=== PATIENT | male | born 1970 | race Hispanic/Latino ===

== ENCOUNTER 2016-07-17 06:40 | Emergency (ER) | payer SELFPAY ==
[2016-07-17] MEDS ORDERED: ONDANSETRON 4 MG/2 ML VIAL IVP ONE (06:58)
[2016-07-17] MEDS ORDERED: NORMAL SALINE 10 ML SYRINGE FLUSH IVP PRN (06:58)
[2016-07-17] MEDS ORDERED: HYDROmorphone 2 MG/1 ML IVP ONE (06:58)
[2016-07-17] MEDS ORDERED: Sodium Chloride 0.9% 1,000 ML PRIMARY IV ONE (06:58)
[2016-07-17] MEDS ORDERED: Famotidine Inj 20 MG in Normal Saline Flush 10 ML IVP ONE (06:58)
[2016-07-17 07:07] LABS: BASOPHILS # (AUTO) 0.02 10*3/UL; BASOPHILS % (AUTO) 0.1 % (0-1); EOSINOPHILS % (AUTO) 0.1 % (0-8); HEMATOCRIT 49.1 % (42.0-52.0); HEMOGLOBIN 16.2 g/dL (14.0-18.0); IMM GRAN % (AUTO) 0.5 % (0-5); IMM GRAN# (AUTO) 0.07 10*3/UL; LYMPHOCYTES # (AUTO) 1.75 10*3/uL; LYMPHOCYTES % (AUTO) 12.6 % (10-50); MEAN CORPUSCULAR HEMOGLOBIN 28.9 PG (27-31); MEAN PLATELET VOLUME 9.3 FL (7.4-12.2); MONOCYTES # (AUTO) 0.86 10*3/UL (0.3-0.8); MONOCYTES % (AUTO) 6.2 % (5-15); NEUTROPHILS # (AUTO) 11.21 10*3/UL; NEUTROPHILS % (AUTO) 80.5 % (50-80); PLATELET MORPHOLOGY COMMENT NORMAL MORPHOLOGY (NORM); WHITE BLOOD COUNT 13.92 10^3/uL (4.8-10.8)
[2016-07-17 07:08] VITALS: RESP 20; TEMP 97.8
[2016-07-17 07:16] LABS: AMYLASE 56 U/L (30-110); ASPARTATE AMINO TRANSFERASE 29 IU/L (21-57); BILIRUBIN,TOTAL 0.6 mg/dL (0.3-1.2); BLOOD UREA NITROGEN 17 mg/dL (7-22); BUN/CREATININE RATIO 21.25 (6-20); CALCIUM 9.2 mg/dL (8.7-10.7); CHLORIDE 101 meq/L (98-112); CREATININE 0.8 mg/dL (0.70-1.50); EST GLOMERULAR FILTRATION > 60 (>60 ml/min/1.73m(2)); GLUCOSE 159 mg/dL (78-110); POTASSIUM 3.7 meq/L (3.8-5.2); SODIUM 139 meq/L (135-145); TOTAL PROTEIN 7.3 g/dL (6.1-8.0)
[2016-07-17 07:48] LABS: BILIRUBIN,URINE NEGATIVE (NEG); CLARITY,URINE Slightly Clo (CLEAR); GLUCOSE, URINE (UA) NEGATIVE (NEG); LEUKOCYTE ESTERASE ,URINE NEGATIVE (NEG); NITRATE,URINE NEGATIVE (NEG); PH,URINE >=9.0 (5.0-8.5); PROTEIN,URINE TRACE mg/dl (NEG); UROBILINOGEN,URINE 0.2 EU/dL (0.2)
[2016-07-17 07:57] LABS: OCCULT BLOOD,URINE TRACE (NEG); URINE SAMPLE TYPE CLEAN CATCH URINE
[2016-07-17 07:58] LABS: RBC,URINE RARE /hpf; URINE CRYSTALS MODERATE
--- NOTE | 2016-07-17 08:29 | DI ---
GALLBLADDER AND LIVER ULTRASOUND, 07/17/2016 6:59 AM: Clinical History: Abdominal pain. Previous Exam: None at this facility. Technique: Scans are performed through the right upper quadrant in multiple projections. The patient was rolled from side to side and the gallbladder was balloted with the probe to facilitate visualizat ion of small gallstones. The gallbladder is well distended and contains multiple bright echoes with acoustical shadowing in th e dependent portions of the gallbladder indicating cholelithiasis. These range in size up to 5 mm in diameter. There is no wall thickening. There is indication of a positive Morse's sign according to t he technologist who performed the study. The common bile duct measures 3 mm. The pancreas is obscured by gas. The liver shows modest increased echogenicity with decreased through transmission in this pa tient may have fatty infiltration of the liver. The right kidney, IVC, and aorta are normal. Readin. Cholelithiasis. The gallbladder wall has a normal thickness without evidence of edema. The techno logist did indicate the patient did have a positive Morse's sign. The common bile duct measures 3 mm . 2. The pancreas is obscured by gas. The right kidney, IVC, and aorta are normal.
--- NOTE | 2016-07-17 08:56 | PDOC ---
Abdomen/Flank HPI - General Chief Complaint: Abdomen Pain Stated Complaint: abdominal pain Date Seen by Provider: 07/17/16 Time Seen by Provider: 06:45 Source: POSITIVE: Patient Exam Limitations: POSITIVE: No limitations Nurse's Notes Reviewed & Considered: Yes - History of Present Illness Initial Comments: The patient is a 46-year-old male. 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 He had some associated nausea and vomiting. He states he vomited 4 times. No diarrhea. No fevers. No melena, hematochezia, hematemesis , dysuria or hematuria. No history of surgery. He states he has a history of type II diabetes for which she takes metformin 250 mg daily. He smokes about 6 cigarettes per day and occasionally uses alcohol. He states he has had some similar episodes in the past, but none this persistent or severe. 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 DENIES: Denies symptoms, Back pain, Bloody Emesis, Chest pain, Coffee Grounds Emesis, Chills, Diaphoresis, Fever, Fatigue, Headache, Heartburn, Loss of Appetite, Rash, Shortness of breath , Swelling/mass in abdomen, Syncope, Testicular Pain, Weakness, Grossly Bloody Diarrhea, Constipation, Diarrhea, Dysuria, Incontinent Stool, Incontinent Urine , Mucous Diarrhea, Difficulty Walking, Dizziness, Light Headedness, Numbness, Other Similar Symptoms Previously: Yes (but no episodes this persistent or severe) Recent Care Received: REPORTS: Denies Any Prior Injuries Related to Current Complaint?: No - Patient Home Medications Home Medications: Home Medications HYDROcodone/APAP 10/325 Tab [[place] 10/325 Tab] 1 tab PO Q6H PRN #25 tab Metformin HCl 250 mg PO DAILY 07/17/16 - Patient Allergies Allergies/Adverse Reactions: Allergies Allergy/AdvReac Type Severity Reaction Status Date / Time No Known Allergies Allergy Unverified 07/17/16 07:08 Past Medical History - heen HEENT History: Denies History Cardiovascular History: Denies History Respiratory History: Denies History Gastrointestinal History: Denies History Genitourinary History: Denies History Endocrine History: Type 2 Diabetes (oral) Musculoskeletal History: Denies History Neurological History: Denies History Blood Disorders: Denies History Psychiatric History: Denies History History of Sexually Transmitted Diseases: No Male Reproductive History: Denies History Cancer History: Denies History In Past Year Been Physically Harmed or Verbally Threatened: No History of MDRO: No History of Other Communicable Diseases: No Tobacco Use: Current Every Day Smoker Alcohol Use: Occasionally Substance Use Type: None Previous Surgical History: No Significant Family History: No pertinent family hx Past Medical History Reviewed: Reviewed - No Changes ROS - Limitations ROS Limitations: Language Barrier (Djiboutian is patient's second language; Sudanese is his first. He does speak good [place]iboutian, however.) Constitution: REPORTS: Denies Symptoms Cardiovascular: REPORTS: Denies Cardiac Symptoms Respiratory: REPORTS: Denies Resp Symptoms Neurological: REPORTS: Denies Neuro Symptoms Gastrointestinal: REPORTS: Abdominal Pain, Nausea, Vomitting Endocrine: REPORTS: Denies Symptoms Musculoskeletal: REPORTS: Denies MS Symptoms Genitourinary: REPORTS: Denies Symptoms Eyes: REPORTS: Denies Symptoms ENT: REPORTS: Denies Symptoms Skin: REPORTS: Denies Skin Symptoms Lympathic: REPORTS: Denies Lympathic Symptoms Immunologic: POSITIVE: Denies Symptoms Psychiatric: POSITIVE: Denies Psych Symptoms Abdominal/Flank Pain PE - General Appearance General Appearance: POSITIVE: Alert, Cooperative, No Acute Distress, No Evidence of Trauma - HEENT HEENT: POSITIVE: Head Inspection Nml, Eyes Inspection Nml, Ears Inspection Nml, Nose Inspection Nml, Oral/Dental Inspect. Nml, Pharynx Inspect. Nml, PERRL, EOMI - Neck Neck: POSITIVE: Normal Inspection, No Apparent Injury - Respiratory Respiratory: POSITIVE: No Respiratory Distress, Breath Sounds Normal, Chest Non- Tender - Cardiovascular Cardiovascular: POSITIVE: Regular Rate and Rhythm, Heart Sounds Normal, Equal Pulses, Strong Pulses Peripheral Pulses: Radial (R): 2+, Radial (L): 2+ - Chest Chest: POSITIVE: Non Tender - Abdomen Abdomen: Soft: (All Quadrants), Denies Tenderness: (LLQ), (RLQ), (LUQ), No Splenomegaly: (All Quadrants), No Hepatomegaly: (All Quadrants), No Guarding: ( All Quadrants), No Rebound: (All Quadrants), No Palpable Pulse: (All Quadrants) , No Palpabale Mass: (All Quadrants), No Distention: (All Quadrants), No Rigidity: (All Quadrants), Tenderness Noted: (RUQ) - Back Back: POSITIVE: Normal Inspection - Skin Skin: POSITIVE: Intact, Normal For Race, Warm, Dry, No Rash - Extremities Extremity: Non-Tender: (All Extremities), Normal ROM: (All Extremities), Normal Inspection: (All Extremities) - Neurological Neurological: 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, 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0) g/dL Hct 49.1 (42.0-52.0) % MCV 87.7 (80-90) FL MCH 28.9 (27-31) PG MCHC 33.0 (33-37) g/dL RDW Std Deviation 41.9 (39-50) fL RDW Coeff of Xavier 13.0 (11.5-14.5) % Plt Count 295 (140-350) 10*3/uL MPV 9.3 (7.4-12.2) FL Immature Gran % (Auto) 0.5 (0-5) % Neut % (Auto) 80.5 H (50-80) % Lymph % (Auto) 12.6 (10-50) % [place] % (Auto) 6.2 (5-15) % Eos % (Auto) 0.1 (0-8) % Baso % (Auto) 0.1 (0-1) % Immature Gran # (Auto) 0.07 10*3/UL Neut # (Auto) 11.21 10*3/UL Lymph # (Auto) 1.75 10*3/uL [place] # (Auto) 0.86 H (0.3-0.8) 10*3/UL Eos # (Auto) 0.01 10*3/UL Baso # (Auto) 0.02 10*3/UL WBC Morphology Comment Normal morphology (NORM) Plt Morphology Comment Normal morphology (NORM) RBC Morph Comment Normal morphology (NORM) Sodium 139 (135-145) meq/L Potassium 3.7 L (3.8-5.2) meq/L Chloride 101 (98-112) meq/L Carbon Dioxide 27 (23-33) meq/L Anion Gap 11 (5-20) BUN 17 (7-22) mg/dL Creatinine 0.8 (0.70-1.50) mg/dL Estimated GFR > 60 (>60 ml/min/1.73m(2)) BUN/Creatinine Ratio 21.25 H (6-20) Glucose 159 H (78-110) mg/dL Calculated Osmolality 292.0 (267-292) mOsm/kg Calcium 9.2 (8.7-10.7) mg/dL Total Bilirubin 0.6 (0.3-1.2) mg/dL AST 29 (21-57) IU/L ALT 31 (21-72) IU/L Alkaline Phosphatase 86 (38-126) IU/L Total Protein 7.3 (6.1-8.0) g/dL Albumin 4.3 (3.5-4.8) g/dL Globulin 3.0 (2.50-4.10) g/dL Albumin/Globulin Ratio 1.40 (1.3-2.0) mg/g Amylase 56 (30-110) U/L Lipase 57 (23-300) IU/L Ur Collection Type Clean catch urine Urine Color Yellow Urine Clarity Slightly александр (CLEAR) Urine pH >=9.0 (5.0-8.5) Ur Specific [place] 1.015 (1.005-1.030) Urine Protein Trace (NEG) mg/dl Urine Glucose (UA) Negative (NEG) mg/dL Urine Ketones Negative (NEG) Urine Occult Blood Trace H (NEG) Urine Nitrate Negative (NEG) Urine Bilirubin Negative (NEG) Urine Urobilinogen 0.2 (0.2) EU/dL Ur Leukocyte Esterase Negative (NEG) Urine RBC Rare (NONE) /hpf Urine WBC None (NONE) Ur Squamous Epith Cells None (NONE) Ur Renal Epithelial Cell None (NONE) Urine Crystals Moderate Urine Bacteria None (NONE) Urine Casts None (NONE) Urine Mucus None (NONE) Urine Trichomonas None (NONE) Urine Yeast None (NONE) Ur Culture Indicated? Culture not set - Patient's Progress Pain Medication Addressed: POSITIVE: Yes (Patient given Dilaudid 2 mg IV with complete resolution of pain) School/Work Release Addressed: POSITIVE: Yes Re-examine Time: 08:45 Re-Examine Comment: Patient asymptomatic on discharge. Patient given 2 mg of Dilaudid IV, 4 mg of Zofran IV and a liter of fluid IV while in the emergency room. Diagnosis of cholelithiasis with biliary colic discussed. Patient given a copy of this record plus his laboratory values and a CD of his ultrasound. Patient to follow-up with his primary care provider in [facility] for further evaluation and treatment. He is to return here anytime if his condition worsens while he is in [place]. Status: POSITIVE: Improved, Re-Examined - Consult Counseled: POSITIVE: Patient, RE: Lab Results, RE: Radiology Results, RE: DX, RE : Need for F/U Patient Care Time - Estimated PCT Patient Care Time (In Minutes): 45 Vital Signs - Recent Vital Signs Vital Signs: Vital Signs (Last 8 hours) Temp Pulse Resp BP Pulse Ox 07/17/16 06:40 97.8 F 79 20 142/104 95 - VS Reviewed Vital Signs Reviewed: Yes Discharge Clinical Impression: Biliary colic, Cholelithiases Discharge Disposition: Discharged to Home Condition: Stable Prescriptions / Orders: HYDROcodone/APAP 10/325 Tab [[place] 10/325 Tab] 1 tab PO Q6H PRN #25 tab PRN Reason: Pain Patient Instructions Given at Discharge: Biliary Colic (ED), Gallstones (ED) Additional Instructions: Your upper abdominal pain today was due to a gallbladder attack. Your ultrasound shows that you do have all stones. I'm glad you are feeling better. You do need to follow-up with your physician in [facility] to have this problem followed and probably to have your gall bladder removed sometime in the future. Hydrocodone/APAP, one every 6 hours as necessary for pain. Avoid fatty foods. Return here anytime if you develop fevers, severe pain, persistent vomiting, or if your condition worsens in any way. Again, you'll probably need to have your gallbladder removed at some time, but this does not need to be done urgently. Your blood and urine tests were normal. Follow Up With: NONE,NONE [Primary Care Provider] - (Instructions as above. Follow-up with your physician in [facility]. Return here as necessary.)
--- NOTE | 2016-07-17 16:33 | EKG ---
[address] [address] Measurements Intervals [place] Rate: 78 P: 48 IA: 144 QRS: -9 QRSD: 79 T: 4 QT: 400 QTc: 434 Interpretive Statements SINUS RHYTHM WITH SINUS ARRHYTHMIA No previous ECG available for comparison Electronically Signed On 07-17-16 17:12:33 MST by Tye Gaspar [email or web address]
== END 2016-07-17 09:10 | disposition home or self-care (01) ==
LOC: ER 06:40
DX: K80.50 Calculus of bile duct without cholangitis or cholecystitis without obstruction (principal); K80.20 Calculus of gallbladder without cholecystitis without obstruction; R11.2 Nausea with vomiting, unspecified; R10.13 Epigastric pain; E11.9 Type 2 diabetes mellitus without complications
CPT/HCPCS: 76705; 80053; 81001; 81003; 82150; 83690; 85025; 93005; 93010; 96374; 96375; 99283; J1170; J2405; J7030